=== PATIENT | female | born 1975 | race Two or more races ===

== ENCOUNTER 2024-10-20 19:02 | Emergency (ER) | payer OTHER, SELFPAY ==
[2024-10-20 19:19] VITALS: BP 149/83; PULSE 76; TEMP 37; O2SAT 98; BMI 25.4
--- NOTE | 2024-10-20 19:36 | CT_ITS ---
[facility] [id number] Patient Name: KIMBERLY CAROLINA MRN: [id number] date: 1975 Sex: F Assigned Patient Location: ER Current Patient Location: ED.MAIN Accession/Order Number: [id number] Exam Date: 10/20/2024 19:42 Report Date: 10/20/2024 20:02 At the request of: HAI DIAZ MD Procedure: CT abdomen pelvis wo con CT ABDOMEN AND PELVIS WITHOUT INTRAVENOUS CONTRAST: CLINICAL HISTORY: right abdominal pain COMPARISON: None TECHNIQUE: Spiral images were obtained through the abdomen and pelvis without intravenous contrast. This CT exam was performed using one or more following dose reduction techniques: Automated exposure control, adjustment of the mA and/or kV according to patient size, or use of iterative reconstruction technique. FINDINGS: Lung Bases: [No focal opacity] Organs:Cholecystectomy.. Otherwise the liver, spleen, adrenals, kidneys, and pancreas are unremarkable.[ GI: Mild retained stool. No bowel obstruction. Unremarkable appendix. Mild distal colonic diverticulosis.[ Pelvis:[Bladder, uterus unremarkable. No suspicious adnexal mass.] Peritoneum/Retroperitoneum:No free air or free fluid. No bulky adenopathy.[ Abd wall/Bones:Minimal anterolisthesis L4 on L5. Likely related to the facet arthropathy.[ CT/CT abdomen pelvis wo con IMPRESSION: Negative acute inflammatory process or bowel obstruction. Negative for nephrolithiasis Impression dictated by: Rupesh Young M.D. 10/20/2024 8:02 PM Dictation Location: [facility] Electronically authenticated by: [id number] Y Date: 10/20/2024 20:02
--- NOTE | 2024-10-20 19:37 | ED.ABDPAIN1 ---
HPI - Abdominal Pain General Chief Complaint: Abdominal Pain Stated Complaint: ABDOMINAL PAIN RIGHT SIDE Time Seen by Provider: 10/20/24 19:32 Source: patient and family Mode of arrival: walk-in History of Present Illness HPI narrative: past history of kidney stones. Presents complaining pain suprapubic and right flank area. No fever or nausea/vomiting. In the past required invasive procedure to remove stones Related Data Home Medications ?Medication ?Instructions ?Recorded ?Confirmed No Known Home Medications 10/20/24 10/20/24 Allergies Allergy/AdvReac Type Severity Reaction Status Date / Time No Known Drug Allergies Allergy Verified 10/20/24 19:27 Review of Systems ROS Status of ROS 10 or more systems reviewed and unremarkable except as noted in history and below PFSH PFSH Social History Little interest or pleasure in doing things: not at all Feeling down, depressed, or hopeless: not at all Exam Constitutional Vital Signs, click to edit/add: Last Vital Signs Temp 98.6 F 10/20/24 19:19 Pulse 76 10/20/24 19:19 Resp 16 10/20/24 19:19 BP 149/83 H 10/20/24 19:19 Pulse Ox 98 10/20/24 19:19 O2 Del Method Room Air 10/20/24 19:19 Common normals: no apparent distress, average body habitus, healthy appearing, alert and well nourished [facility] Common normals: normocephalic and head/scalp atraumatic Eye Common normals: EOMs intact bilaterally and conjunctivae normal Respiratory Common normals: normal respiratory effort, no retractions, no use of accessory muscles and clear to auscultation bilaterally Cardio Common normals: regular rate, regular rhythm, S1 normal heart sound and S2 normal heart sound GI Common normals: Normal to inspection, nondistended, normoactive bowel sounds present and soft to palpation Other: mild RLQ and mild R CVA tenderness. No guarding Extremity Common normals: normal to inspection and full ROM Neuro Common normals: CN's II-XII intact bilaterally, moves all extremities and no focal motor deficits Psych Appearance: grossly normal Course Vital Signs Vital signs: Vital Signs Temperature 98.6 F 10/20/24 19:19 Pulse Rate 76 10/20/24 19:19 Respiratory Rate 16 10/20/24 19:19 Blood Pressure 149/83 H 10/20/24 19:19 Pulse Oximetry 98 10/20/24 19:19 Oxygen Delivery Method Room Air 10/20/24 19:19 Temperature 98.6 F 10/20/24 19:19 Pulse Rate 76 10/20/24 19:19 Respiratory Rate 16 10/20/24 19:19 Blood Pressure 149/83 H 10/20/24 19:19 Pulse Oximetry 98 10/20/24 19:19 Oxygen Delivery Method Room Air 10/20/24 19:19 MDM - Abdominal Pain MDM Narrative Medical decision making narrative: presents with RLQ/flank and suprapubic complaint of pain. History limited by language barrier. Her son is interpreting. CT abd/pelvis without acute findings patient re examined and now just has mild pain RUQ. No guarding. past cholecystectomy . labs with mild elevation of AST and ALT as well as elevation of the alk phos that will require follow up. Again CT without inflamatory changes and lipase normal as well. Patient informed of the findings. Re assured she does not have findings of a renal stone. Discharged with a prescription of [place] to use prn . Advised to follow up with her doctor in the next couple of days for recheck Lab Data Labs: Lab Results 10/20/24 10/20/24 Range/Units 19:39 20:10 WBC 13.0 H (4.0-11.0) 10^3/uL RBC 4.36 (4.20-5.40) 10^6/uL Hgb 13.3 (12.0-16.0) g/dL Hct 38.8 (36.0-48.0) % MCV 89.0 (81.0-99.0) fL MCH 30.5 (26.7-34.0) pg MCHC 34.3 (29.9-35.2) g/dL RDW 12.7 (11.0-15.0) % Plt Count 302 (150-450) 10^3/uL MPV 10.9 (9.5-13.5) fL Neut % (Auto) 78.3 H (43.0-75.0) % Lymph % (Auto) 17.1 L (20.5-60.0) % [place] % (Auto) 3.6 (1.7-12.0) % Eos % (Auto) 0.5 L (0.9-7.0) % Baso % (Auto) 0.2 (0.2-2.0) % Neut # (Auto) 10.2 H (1.4-6.5) 10^3/uL Lymph # (Auto) 2.2 (1.2-3.8) 10^3/uL [place] # (Auto) 0.5 (0.3-0.8) 10^3/uL Eos # (Auto) 0.1 (0.0-0.7) 10^3/uL Baso # (Auto) 0.0 (0.0-0.1) 10^3/uL Abs Immat Gran (auto) 0.04 H (0.00-0.03) 10^3/uL Imm/Tot Granulo (auto) 0.3 (0.0-0.5) % Sodium 139 (136-145) mmol/L Potassium 3.9 (3.5-5.1) mmol/L Chloride 102 (98-107) mmol/L Carbon Dioxide 29.0 (21.0-32.0) mmol/L Anion Gap 11.9 BUN 21.0 H (7.0-18.0) mg/dL Creatinine 0.61 (0.55-1.02) mg/dL Est GFR ( Amer) >60 (>=60 mL/min/1.73m^2) Est GFR (Non-Af Amer) >60 (>=60 mL/min/1.73m^2) BUN/Creatinine Ratio 34.4 Glucose 127 H (74-106) mg/dL Lactate 0.9 (0.4-2.0) mmol/L Calcium 8.7 (8.5-10.1) mg/dL Total Bilirubin 1.0 (0.2-1.0) mg/dL AST 112 H (15-37) U/L ALT 84 H (14-59) U/L Alkaline Phosphatase 201 H (46-116) U/L Troponin I High Sens 7.9 (4.0-51.3) pg/mL Total Protein 7.9 (6.4-8.2) g/dL Albumin 3.7 (3.4-5.0) g/dL Globulin 4.2 g/dL Albumin/Globulin Ratio 0.9 Lipase 30.0 (16.0-77.0) U/L Urine Color Lt. yellow (YELLOW) Urine Clarity Clear (CLEAR) Urine pH 6.5 (5.0-9.0) Ur Specific [place] 1.010 (1.005-1.025) Urine Protein Negative (NEG/TRACE) mg/dL Urine Glucose (UA) Negative (NEGATIVE) mg/dL Urine Ketones Negative (NEGATIVE) mg/dL Urine Occult Blood Negative (NEGATIVE) Urine Nitrite Negative (NEGATIVE) Urine Bilirubin Negative (NEGATIVE) Urine Urobilinogen 0.2 (0.2-1.0) EU/dL Ur Leukocyte Esterase Negative (NEGATIVE) Urine RBC 0-2 (0-2) #/HPF Urine WBC 0-2 A (NONE SEEN) #/HPF Ur Squamous Epith Cells Rare (NONE/RARE) #/LPF Urine Crystals None seen (None Seen) #/HPF Urine Bacteria None seen (NONE SEEN) #/HPF Urine Casts None seen (NONE SEEN) #/LPF Urine Mucus None seen (NONE SEEN) Ur Culture Indicated? No Discharge Plan Discharge Chief Complaint: Abdominal Pain Clinical Impression: Abdominal pain Patient Disposition: Home, Self-Care Prescriptions / Home Meds: No Action No Known Home Medications Print Language: [place] Instructions: Abdominal Pain (ED) Additional Instructions: follow up with your doctor in the next couple of days for recheck Referrals: Physician,Non-Staff, MD [Primary Care Provider] - 1 week
[2024-10-20] MEDS: KETOROLAC TROMETHAMINE 30 MG/ML VIAL IVP (19:40)
[2024-10-20] MEDS: 0.9 % SODIUM CHLORIDE 1,000 ML 999 ML IV (20:08)
[2024-10-20 20:15] LABS: Hematocrit 38.8 % (36.0-48.0); Hemoglobin 13.3 g/dL (12.0-16.0); Immature Granulocytes Abs Auto 0.04 10^3/uL (0.00-0.03); Immature Granulocytes Pct Auto 0.3 % (0.0-0.5); Lymphocytes Absolute Auto 2.2 10^3/uL (1.2-3.8); Mean Corpuscular HGB Conc 34.3 g/dL (29.9-35.2); Mean Corpuscular Hemoglobin 30.5 pg (26.7-34.0); Mean Corpuscular Volume 89.0 fL (81.0-99.0); Platelet Count 302 10^3/uL (150-450); Red Blood Count 4.36 10^6/uL (4.20-5.40); White Blood Count 13.0 10^3/uL (4.0-11.0)
[2024-10-20 20:33] LABS: Alanine Aminotransferase 84 U/L (14-59); Albumin Globulin Ratio 0.9; Albumin Level 3.7 g/dL (3.4-5.0); Alkaline Phosphatase 201 U/L (46-116); Anion Gap 11.9; Aspartate Amino Transferase 112 U/L (15-37); Blood Urea Nitrogen 21.0 mg/dL (7.0-18.0); Calcium 8.7 mg/dL (8.5-10.1); Carbon Dioxide 29.0 mmol/L (21.0-32.0); Chloride 102 mmol/L (98-107); Estimated GFR (African America >60 (>=60 mL/min/1.73m^2); Estimated GFR (Non-African Ame >60 (>=60 mL/min/1.73m^2); Globulin 4.2 g/dL; Glucose 127 mg/dL (74-106); Lactate/Lactic Acid 0.9 mmol/L (0.4-2.0); Lipase 30.0 U/L (16.0-77.0); Potassium 3.9 mmol/L (3.5-5.1); Sodium 139 mmol/L (136-145); Total Protein 7.9 g/dL (6.4-8.2)
[2024-10-20 20:41] LABS: Glucose Urine UA NEGATIVE (NEGATIVE)
[2024-10-20 20:56] LABS: Cast Seen? NONE SEEN #/LPF (NONE SEEN); Crystals Seen? None Seen #/HPF (None Seen); Urine Culture Indicated NO
[2024-10-20] MEDS: HYDROCODONE/ACET 5-325 MG TABLET 2 TAB PO (21:37)
[2024-10-20 21:51] VITALS: BP 145/89; O2SAT 98
== END 2024-10-20 21:54 | disposition home or self-care (01) ==
PROVIDERS: Emergency Provider Internal Medicine
DX: R10.31 Right lower quadrant pain (principal); Z87.442 Personal history of urinary calculi; Z90.49 Acquired absence of other specified parts of digestive tract
CPT/HCPCS: 36415; 74176; 80053; 81001; 83605; 83690; 84484; 85025; 96374; 99285; J1885